=== PATIENT | male | born 1995 | race Caucasian/White ===

== ENCOUNTER 2018-02-10 20:25 | Emergency (ER) | payer OTHER, SELFPAY ==
[2018-02-10 20:28] VITALS: BP 174/99; PULSE 97; RESP 20; TEMP 36.6; O2SAT 100; BMI 29.0
[2018-02-10 21:54] LABS: Add Manual Diff / Slide Review NO; Basophils Percent Auto 0.4 % (0-2); Eosinophils Percent Auto 1.6 % (2-4); Hematocrit 45.5 % (41-53); Hemoglobin 15.5 g/dL (13.5-17.5); Lymphocytes Percent Auto 14.9 % (25-40); Mean Corpuscular HGB Conc 34.1 % (30-36); Mean Corpuscular Hemoglobin 27.9 PG (26-34); Mean Corpuscular Volume 81.8 fL (80-100); Monocytes Percent Auto 7.2 % (3-14); Neutrophils Absolute Auto 8300 /uL (3000-5900); Neutrophils Percent Auto 75.9 % (50-75); Platelet Count 368 X10^3/uL (150-400); Red Blood Cell Count 5.56 X10^6/uL (4.5-5.9); Red Cell Distribution Width 15.2 % (11.6-14.8)
[2018-02-10 22:01] LABS: Alanine Aminotransferase 43 IU/L (21-72); Albumin 4.8 g/dL (3.5-5.0); Albumin Globulin Ratio 1.2 (1.0-2.8); Alkaline Phosphatase 83 U/L (38-126); Aspartate Aminotransferase 34 IU/L (17-59); BUN Creatinine Ratio 16.7 (6-22); Bilirubin Total 0.5 mg/dL (0.2-1.3); Blood Urea Nitrogen 15 mg/dL (9-20); Calcium 10.1 mg/dL (8.4-10.2); Carbon Dioxide 31 mmol/L (22-32); Chloride 101 mmol/L (98-107); Creatine Kinase 117 U/L (55-170); Estimated Glomerular Filt Rate > 60.0 mL/min (>60); Globulin 3.9 g/dL (1.7-4.1); Glucose 110 mg/dL (70-100); HEMOLYSIS < 15 (0-50); Lipase 57 U/L (23-300); Potassium 4.5 mmol/L (3.4-5.1); Sodium 144 mmol/L (137-145); Total Protein 8.7 g/dL (6.3-8.2)
[2018-02-10 22:12] LABS: Troponin I < 0.012 ng/mL (0.01-0.034)
[2018-02-10 22:16] LABS: CKMB % Relative Index 0.4 % (1.5-5.0); Creatine Kinase MB 0.42 ng/mL (<2.37)
[2018-02-10 22:33] VITALS: BP 140/87; PULSE 88; RESP 18; O2SAT 99
[2018-02-11 00:28] VITALS: BP 148/90; PULSE 67; RESP 19; O2SAT 100
--- NOTE | 2018-02-11 00:40 | ED.CHESTPAIN ---
HPI - Chest Pain General Chief Complaint: Chest Pain Stated Complaint: CHEST PAIN Time Seen by Provider: 02/10/18 23:21 Source: patient Mode of arrival: ambulatory Limitations: no limitations History of Present Illness HPI narrative: 22-year-old otherwise healthy nonsmoking male presents with a chief complaint of epigastric pain off and on for past few weeks. He states it is worse when he eats and improves with rest. There is occasionally some radiation to his back. When his pain became intense tonight he felt dizzy and lightheaded but then improved after short amount time he denies any recent travel. He has no fever or chills. He denies any shortness of breath complaint: chest pain Onset (ago): week(s) Duration: improved Onset: during rest Pain location: epigastric Severity: moderate Quality: aching Pain radiation: none Relieving factors: nothing Exacerbating factors: eating Associated symptoms: nausea Treatments prior to arrival chest pain: none Related Data Previous Rx's Medication Instructions Recorded naproxen [Naprosyn] 500 mg PO BIDCC #30 tab 06/30/17 pantoprazole [Protonix] 40 mg PO DAILY #20 tab 02/11/18 Allergies Allergy/AdvReac Type Severity Reaction Status Date / Time No Known Allergies Allergy Uncoded 08/05/17 12:43 Review of Systems Review of Systems All systems reviewed & are unremarkable except as noted in HPI and below Constitutional Denies chills, Denies fever(s), Denies lethargy and Denies weakness Eyes Denies change in vision, Denies eye discharge, Denies irritation and Denies loss of vision ENT Ears, Nose, Mouth, and Throat: Denies change in voice, Denies neck pain and Denies sore throat Cardiovascular Denies chest pain, Denies irregular heart rhythm, Denies lightheadedness, Denies palpitations, Denies dyspnea, Denies dyspnea on exertion and Denies orthopnea Respiratory Denies cough, Denies dyspnea, Denies dyspnea on exertion and Denies wheezing Gastrointestinal Gastrointestinal: Reports abdominal pain, Denies change in bowel habits, Denies diarrhea, Denies nausea and Denies vomiting Genitourinary Denies hematuria, Denies flank pain, Denies urinary incontinence and Denies urinary urgency Musculoskeletal Denies neck pain Integumentary/Breasts Denies pruritus, Denies erythema, Denies rash and Denies wounds Neurologic Denies confusion, Denies loss of vision and Denies weakness Psychiatric Denies anxiety, Denies confusion, Denies depression, Denies homicidal ideation and Denies suicidal ideation Endocrine Denies palpitations Hematologic/Lymphatic Denies easy bruising Allergic/Immunologic Denies wheezing [facility] Social History Smoking Status: Never smoker Exam Narrative Exam Narrative: GEN: AOx3 and in mild distress EYES: Pupils are equal, round, and reactive to light and accommodation. Extraoccular muscles are intact bilaterally. There is no subconjunctival hemorrhage or exudate. CHEST: Lungs are clear to auscultation bilaterally and free of wheezes, rales, or rhonchi. Heart rate is regular rhythm, there are no murmurs, clicks, rubs, or gallops. There is no chest wall tenderness. ABD: Abdomen is soft and mildly tender in the epigastrium. There is no guarding or rebound. Bowel sounds are normal in all 4 quadrants. There is no mass or organomegaly. EXT: Full painless ROM of all extremities with no loss of sensation or strength. SKIN: Warm, pink, and dry. No erythema or rash Initial Vital Signs Initial Vital Signs: Vital Signs Temperature 97.9 F 02/10/18 20:28 Pulse Rate 97 H 02/10/18 20:28 Respiratory Rate 20 02/10/18 20:28 Blood Pressure 174/99 H 02/10/18 20:28 Pulse Oximetry 100 02/10/18 20:28 Course Orders Ordered: ED Orders 02/10/18 21:20 Complete Blood Count AUTO DIFF Stat Comprehensive Metabolic Panel Stat Lipase Stat Troponin & CK Cardiac Panel Stat Discontinued Medications Al Hydrox/Mg Hydrox/Simethicone 20 ml/ Lidocaine HCl 15 ml 0 ml PO NOW ONE Stop: 02/11/18 00:58 Last Admin: 02/11/18 01:05 Dose: 35 ml Vital Signs - 8 hr 02/10/18 22:33 02/11/18 00:28 Pulse Rate 88 67 Respiratory Rate 18 19 Blood Pressure [Left Arm] 140/87 148/90 H Pulse Oximetry 99 100 MDM - Chest Pain Medical Records Data Attestation: I reviewed the patient's medical records. Lab Data Attestation: I reviewed the patient's lab results. Result diagrams: 02/10/18 21:20 02/10/18 21:20 Lab Results 02/10/18 02/10/18 Range/Units 21:20 21:20 WBC 11.0 (4.5-11.0) X10^3/uL RBC 5.56 (4.5-5.9) X10^6/uL Hgb 15.5 (13.5-17.5) g/dL Hct 45.5 (41-53) % MCV 81.8 (80-100) fL MCH 27.9 (26-34) PG MCHC 34.1 (30-36) % RDW 15.2 H (11.6-14.8) % Plt Count 368 (150-400) X10^3/uL Neut % (Auto) 75.9 H (50-75) % Lymph % (Auto) 14.9 L (25-40) % [place] % (Auto) 7.2 (3-14) % Eos % (Auto) 1.6 L (2-4) % Baso % (Auto) 0.4 (0-2) % Neut # (Auto) 8300 H (0286-8120) /uL Sodium 144 (137-145) mmol/L Potassium 4.5 (3.4-5.1) mmol/L Chloride 101 (98-107) mmol/L Carbon Dioxide 31 (22-32) mmol/L BUN 15 (9-20) mg/dL Creatinine 0.90 (0.66-1.25) mg/dL Estimated GFR > 60.0 (>60) mL/min BUN/Creatinine Ratio 16.7 (6-22) Glucose 110 H (70-100) mg/dL Calcium 10.1 (8.4-10.2) mg/dL Total Bilirubin 0.5 (0.2-1.3) mg/dL AST 34 (17-59) IU/L ALT 43 (21-72) IU/L Alkaline Phosphatase 83 (38-126) U/L Total Creatine Kinase 117 (55-170) U/L CK-MB (CK-2) 0.42 (<2.37) ng/mL CK-MB (CK-2) Rel Index 0.4 L (1.5-5.0) % Troponin I < 0.012 (0.01-0.034) ng/mL Total Protein 8.7 H (6.3-8.2) g/dL Albumin 4.8 (3.5-5.0) g/dL Globulin 3.9 (1.7-4.1) g/dL Albumin/Globulin Ratio 1.2 (1.0-2.8) Lipase 57 (23-300) U/L ECG Data Attestation: I personally reviewed and interpreted this ECG as follows: Prior ECG tracings: not available for review Interpretation: EKG is normal sinus rhythm and free of any signs of ischemia or ectopy. Discharge Plan Departure Patient Disposition: Home Clinical Impression: Abdominal pain, acute, epigastric Discharge Date/Time: 02/11/18 01:07 Interventions: ED Discharge Assessment Last Done: 02/11/18 01:13 Instructions: DI for Epigastric Pain Activity Restrictions/Additional Instructions: *You have been diagnosed with [ acute epigastric pain ] *What to do: *Take medications as directed *Follow up with your primary care provider in 2-3 days, call for an appointment. Let them know you were seen in the Emergency Department and that we ask that you be seen in follow up *Return to ER if you should have any new, worsening or concerning symptoms Prescriptions: New pantoprazole [Protonix] 40 mg tablet,delayed release (DR/EC) 40 mg PO DAILY Qty: 20 RF: 0 No Action naproxen [Naprosyn] 500 MG tablet 500 mg PO BIDCC Qty: 30 RF: 0
[2018-02-11] MEDS: MAG HYDROX/ALUMINUM/SIMETH SUS 20 ML, LIDOCAINE VISCOUS 2% 15 ML PO (01:05)
== END 2018-02-11 01:07 | disposition home or self-care (01) ==
PROVIDERS: Emergency Provider Emergency Medicine
DX: R10.9 Unspecified abdominal pain (principal); R07.89 Other chest pain
CPT/HCPCS: 36591; 80053; 82550; 82553; 83690; 84484; 85025; 93005; 93010; 99282; 99284

== ENCOUNTER 2018-05-13 19:50 | Emergency (ER) | payer OTHER, SELFPAY ==
[2018-05-13 19:59] VITALS: BP 147/89; PULSE 84; RESP 14; TEMP 37; O2SAT 98; BMI 29.0
[2018-05-13 21:23] VITALS: BP 134/94; PULSE 87; RESP 18; O2SAT 95
--- NOTE | 2018-05-13 21:49 | DI.RAD.S_ITS ---
PROCEDURE: XR CHEST 2V INDICATIONS: chest pain TECHNIQUE: 2 views of the chest were acquired. COMPARISON: None. FINDINGS: Surgical changes and devices: None. Lungs and pleura: No pleural effusions or pneumothorax. Lungs are clear. Mediastinum: Mediastinal contours are normal. Heart size is normal. Bones and chest wall: No suspicious bony abnormalities. Soft tissues appear unremarkable. IMPRESSION: No acute disease. Dictated by: Lai Machado M.D. on 05/13/2018 at 22:07 Approved by: Lai Machado M.D. on 05/13/2018 at 22:08
[2018-05-13 22:26] VITALS: PULSE 93; O2SAT 100
[2018-05-13 22:38] LABS: Add Manual Diff / Slide Review NO; Basophils Absolute Auto 100 /uL (0-100); Basophils Percent Auto 0.7 % (0-2); Eosinophils Absolute Auto 100 /uL (0-450); Eosinophils Percent Auto 1.2 % (2-4); Hematocrit 47.7 % (41-53); Hemoglobin 16.6 g/dL (13.5-17.5); Lymphocytes Absolute Auto 2600 /uL (1100-4500); Lymphocytes Percent Auto 25.3 % (25-40); Mean Corpuscular HGB Conc 34.8 % (30-36); Mean Corpuscular Hemoglobin 29.3 PG (26-34); Mean Corpuscular Volume 84.1 fL (80-100); Monocytes Absolute Auto 700 /uL (0-900); Monocytes Percent Auto 6.4 % (3-14); Neutrophils Absolute Auto 6700 /uL (1500-7000); Neutrophils Percent Auto 66.4 % (50-75); Platelet Count 309 X10^3/uL (150-400); Red Blood Cell Count 5.67 X10^6/uL (4.5-5.9); Red Cell Distribution Width 14.3 % (11.6-14.8); White Blood Cell Count 10.2 X10^3/uL (4.5-11.0)
[2018-05-13 22:45] LABS: Alanine Aminotransferase 30 IU/L (21-72); Albumin 4.8 g/dL (3.5-5.0); Albumin Globulin Ratio 1.3 (1.0-2.8); Alkaline Phosphatase 78 U/L (38-126); Aspartate Aminotransferase 26 IU/L (17-59); Bilirubin Total 0.6 mg/dL (0.2-1.3); Blood Urea Nitrogen 9 mg/dL (9-20); Calcium 9.6 mg/dL (8.4-10.2); Carbon Dioxide 27 mmol/L (22-32); Chloride 104 mmol/L (98-107); Creatine Kinase 95 U/L (55-170); Estimated Glomerular Filt Rate > 60.0 mL/min (>60); Globulin 3.6 g/dL (1.7-4.1); Glucose 96 mg/dL (70-100); HEMOLYSIS 34 (0-50); Potassium 4.3 mmol/L (3.4-5.1); Sodium 143 mmol/L (137-145); Total Protein 8.4 g/dL (6.3-8.2)
[2018-05-13 23:07] LABS: Troponin I < 0.012 ng/mL (0.01-0.034)
[2018-05-14 00:03] VITALS: BP 131/70; PULSE 78; RESP 16; O2SAT 95
--- NOTE | 2018-05-17 19:53 | ED_ITS ---
HPI - Chest Pain General Chief Complaint: Chest Pain Stated Complaint: CHEST PAIN TOWRDS LEFT ARM Time Seen by Provider: 05/13/18 20:53 Source: patient Mode of arrival: ambulatory Limitations: no limitations History of Present Illness HPI narrative: Patient complains of pain in his left chest and shoulder. He denies any shortness of breath. Symptoms have been going on for a couple of weeks now. Patient states that he does use his left arm a lot of his job, and is not sure if this is the cause of the pain or not. However, patient does also note that his father had an NC at 20. patient denies any nausea or vomiting. He is not a smoker or diabetic. No hypertension. No known cardiac issues. Pain when he gets it is 4/10. It is currently 2/10. Related Data Previous Rx's Medication Instructions Recorded naproxen [Naprosyn] 500 mg PO BIDCC #30 tab 06/30/17 pantoprazole [Protonix] 40 mg PO DAILY #20 tab 02/11/18 ondansetron 4 mg disintegrating 4 mg PO Q6-8H PRN #30 tab 02/17/18 tablet Allergies Allergy/AdvReac Type Severity Reaction Status Date / Time No Known Drug Allergies Allergy Verified 05/13/18 19:59 Review of Systems Constitutional Denies chills, Denies fever(s), Denies lethargy and Denies weakness Eyes Denies change in vision, Denies eye discharge, Denies irritation and Denies loss of vision ENT Ears, Nose, Mouth, and Throat: Denies change in voice, Denies neck pain and Denies sore throat Cardiovascular Reports chest pain, Denies irregular heart rhythm, Denies lightheadedness, Denies palpitations, Denies dyspnea, Denies dyspnea on exertion and Denies orthopnea Respiratory Denies cough, Denies dyspnea, Denies dyspnea on exertion and Denies wheezing Gastrointestinal Gastrointestinal: Denies abdominal pain, Denies change in bowel habits, Denies diarrhea, Denies nausea and Denies vomiting Genitourinary Denies hematuria, Denies flank pain, Denies urinary incontinence and Denies urinary urgency Musculoskeletal Denies neck pain Integumentary/Breasts Denies pruritus, Denies erythema, Denies rash and Denies wounds Neurologic Denies confusion, Denies loss of vision and Denies weakness Psychiatric Denies anxiety, Denies confusion, Denies depression, Denies homicidal ideation and Denies suicidal ideation Endocrine Denies palpitations Hematologic/Lymphatic Denies easy bruising Allergic/Immunologic Denies wheezing [facility] Medical History Healthy adult (Acute) Surgical History No pertinent past surgical history (Acute) Social History Smoking Status: Never smoker Exam Initial Vital Signs Initial Vital Signs: Vital Signs Temperature 98.6 F 05/13/18 19:59 Pulse Rate 84 05/13/18 19:59 Respiratory Rate 14 05/13/18 19:59 Blood Pressure 147/89 H 05/13/18 19:59 Pulse Oximetry 98 05/13/18 19:59 Const General: cooperative and well developed Nutritional Appearance: well nourished Orientation: alert, awake, oriented x3 and not confused HENMT Head: normocephalic and atraumatic Ears: external ears normal Nose: external nose normal and No nasal discharge Face and sinus: face symmetric and No dry mucous membranes Mouth: oral mucosae normal and moist mucous membranes Teeth and gingiva: dentition normal Eyes General: appearance normal, both eyes and all related structures Eyelids: eyelids normal Conjunctivae: conjunctivae normal Sclera: sclerae normal Pupils: PERRL EOM: EOM intact bilaterally Neck Neck: normal visual inspection, trachea midline, No lymphadenopathy, No midline deformity and No JVD Lymphatic: No lymphedema Chest Chest: normal inspection of the chest Resp Effort & Inspection: normal respiratory effort, able to speak in complete sentences, no respiratory distress and no use of accessory muscles Auscultation: clear to auscultation bilaterally, no rales, no rhonchi and no wheezes Cardio Rate: regular rate Rhythm: regular rhythm Heart Sounds: no click, no gallops, no murmurs and no rubs Pulses: normal peripheral pulses GI Inspection: non-distended Palpation: soft, no hepatosplenomegaly, No guarding, No pulsatile mass and No tender Auscultation: normal bowel sounds Back/Spine/Pelvis Back: No CVA tenderness Cervical Spine: cervical ROM normal and No pain with cervical ROM Thoracic/Lumbar Spine: thoracic and lumbar spine normal to inspection Skin General: no rashes or lesions noted, No jaundice and No petechiae Neuro General: alert, oriented x3, gait normal and no focal motor deficits Speech: speech normal Extrem General: full ROM, no clubbing, cyanosis or edema, no pedal edema and no calf tenderness Psych Appearance: well kempt Mental Status: mental status grossly normal Attitude: cooperative Thought Content: normal and suicidality Judgment: judgment good Course Course Narrative: patient was very low risk for NC, and was not entirely clear whether the patient's father had actually had an NC at 20 or another Combivent. Nonetheless, the patient was worked up and workup was found to be unremarkable. He did note that his pain was worse with movement and he does do repetitive movements of his shoulder as part of his work, and I felt that most likely, the shoulder pain at least was more mechanical in nature. We have discussed home management symptoms, as well as the usual indications for return. MDM - Chest Pain Medical Records Data Attestation: I reviewed the patient's medical records. Lab Data Attestation: I reviewed the patient's lab results. Result diagrams: 05/13/18 22:30 05/13/18 22:30 Lab Results 05/13/18 05/13/18 Range/Units 22:30 22:30 WBC 10.2 (4.5-11.0) X10^3/uL RBC 5.67 (4.5-5.9) X10^6/uL Hgb 16.6 (13.5-17.5) g/dL Hct 47.7 (41-53) % MCV 84.1 (80-100) fL MCH 29.3 (26-34) PG MCHC 34.8 (30-36) % RDW 14.3 (11.6-14.8) % Plt Count 309 (150-400) X10^3/uL Neut % (Auto) 66.4 (50-75) % Lymph % (Auto) 25.3 (25-40) % [place] % (Auto) 6.4 (3-14) % Eos % (Auto) 1.2 L (2-4) % Baso % (Auto) 0.7 (0-2) % Neut # (Auto) 6700 (4792-7070) /uL Lymph # (Auto) 2600 (9385-7822) /uL [place] # (Auto) 700 (0-900) /uL Eos # (Auto) 100 (0-450) /uL Baso # (Auto) 100 (0-100) /uL Sodium 143 (137-145) mmol/L Potassium 4.3 (3.4-5.1) mmol/L Chloride 104 (98-107) mmol/L Carbon Dioxide 27 (22-32) mmol/L BUN 9 (9-20) mg/dL Creatinine 0.90 (0.66-1.25) mg/dL Estimated GFR > 60.0 (>60) mL/min BUN/Creatinine Ratio 10.0 (6-22) Glucose 96 (70-100) mg/dL Calcium 9.6 (8.4-10.2) mg/dL Total Bilirubin 0.6 (0.2-1.3) mg/dL AST 26 (17-59) IU/L ALT 30 (21-72) IU/L Alkaline Phosphatase 78 (38-126) U/L Total Creatine Kinase 95 (55-170) U/L CK-MB (CK-2) TNP CK-MB (CK-2) Rel Index TNP Troponin I < 0.012 (0.01-0.034) ng/mL Total Protein 8.4 H (6.3-8.2) g/dL Albumin 4.8 (3.5-5.0) g/dL Globulin 3.6 (1.7-4.1) g/dL Albumin/Globulin Ratio 1.3 (1.0-2.8) ECG Data Attestation: I personally reviewed and interpreted this ECG as follows: Prior ECG tracings: not available for review Interpretation: Twelve lead EKG was performed, and showed the patient to be in a normal sinus rhythm with a normal rate and axis. Pure intervals were normal. No significant ST or T-wave changes. Summary: Normal EKG as interpreted by ED MD. Discharge Plan Departure Patient Disposition: Home Clinical Impression: Chest pain Discharge Date/Time: 05/14/18 00:05 Interventions: ED Discharge Assessment Last Done: 05/14/18 00:03 Instructions: DI for Chest Pain Activity Restrictions/Additional Instructions: Your labs look good, as do your EKG and chest x-ray. Prescriptions: No Action ondansetron 4 mg tablet,disintegrating 4 mg PO Q6-8H PRN (Reason: nausea and vomiting) Qty: 30 RF: 0 naproxen [Naprosyn] 500 MG tablet 500 mg PO BIDCC Qty: 30 RF: 0 pantoprazole [Protonix] 40 mg tablet,delayed release (DR/EC) 40 mg PO DAILY Qty: 20 RF: 0
== END 2018-05-14 00:05 | disposition home or self-care (01) ==
PROVIDERS: Emergency Provider Emergency Medicine
DX: R07.89 Other chest pain (principal)
CPT/HCPCS: 36591; 71046; 80053; 82550; 84484; 85025; 93005; 93010; 99282; 99285

== ENCOUNTER 2018-06-26 02:28 | Emergency (ER) | payer OTHER, SELFPAY ==
[2018-06-26 02:37] VITALS: BP 141/111; PULSE 104; RESP 18; TEMP 36.9; O2SAT 100; BMI 29.0
[2018-06-26 02:45] VITALS: BP 141/111; PULSE 104; RESP 18; TEMP 36.9; O2SAT 100; BMI 29.0
[2018-06-26 02:46] LABS: Add Manual Diff / Slide Review NO; Basophils Absolute Auto 100 /uL (0-100); Basophils Percent Auto 0.6 % (0-2); Eosinophils Absolute Auto 200 /uL (0-450); Eosinophils Percent Auto 1.7 % (2-4); Hematocrit 47.8 % (41-53); Hemoglobin 16.4 g/dL (13.5-17.5); Lymphocytes Absolute Auto 4200 /uL (1100-4500); Mean Corpuscular HGB Conc 34.2 % (30-36); Mean Corpuscular Hemoglobin 29.1 PG (26-34); Mean Corpuscular Volume 85.2 fL (80-100); Monocytes Absolute Auto 900 /uL (0-900); Monocytes Percent Auto 6.6 % (3-14); Neutrophils Absolute Auto 8500 /uL (1500-7000); Neutrophils Percent Auto 61.1 % (50-75); Platelet Count 395 X10^3/uL (150-400); Red Blood Cell Count 5.62 X10^6/uL (4.5-5.9); Red Cell Distribution Width 13.9 % (11.6-14.8); White Blood Cell Count 13.9 X10^3/uL (4.5-11.0)
[2018-06-26 02:55] LABS: BUN Creatinine Ratio 21.3 (6-22); Blood Urea Nitrogen 17 mg/dL (9-20); Calcium 9.6 mg/dL (8.4-10.2); Carbon Dioxide 24 mmol/L (22-32); Chloride 99 mmol/L (98-107); Estimated Glomerular Filt Rate > 60.0 mL/min (>60); Glucose 109 mg/dL (70-100); HEMOLYSIS 17 (0-50); Potassium 3.6 mmol/L (3.4-5.1); Sodium 140 mmol/L (137-145)
--- NOTE | 2018-06-26 02:56 | ED.HA ---
HPI - Headache General Chief Complaint: Headache Stated Complaint: L sided facial and arm numbness Time Seen by Provider: 06/26/18 02:32 Source: patient Mode of arrival: EMS Limitations: no limitations History of Present Illness HPI Narrative: Patient is otherwise healthy 22-year-old male brought in by EMS after he was at work at the local [employer] and started noticing that the left side of his face was numb. He also noticed that his left hand was numb. He states that he started to get very worried about the symptoms. He states that his grand father had of a stroke. He also states that his father had heart issues. EMS reports that prior to arrival his blood sugar was in the 50s. They did not provide any glucose prior to arrival. Related Data Previous Rx's Medication Instructions Recorded naproxen [Naprosyn] 500 mg PO BIDCC #30 tab 06/30/17 pantoprazole [Protonix] 40 mg PO DAILY #20 tab 02/11/18 ondansetron 4 mg disintegrating 4 mg PO Q6-8H PRN #30 tab 02/17/18 tablet Allergies Allergy/AdvReac Type Severity Reaction Status Date / Time No Known Drug Allergies Allergy Verified 05/13/18 19:59 Review of Systems Constitutional Denies fever(s), Denies frequent falls and Denies weakness ENT Ears, Nose, Mouth, and Throat: Denies disequilibrium Cardiovascular Denies chest pain Gastrointestinal Gastrointestinal: Denies abdominal pain Musculoskeletal Denies myalgias, Denies arthralgias, Reports numbness and Reports tingling Integumentary/Breasts Denies rash Neurologic Denies confusion, Denies frequent falls, Reports numbness, Reports tingling, Denies disequilibrium and Denies weakness Psychiatric Denies confusion Hematologic/Lymphatic Denies easy bleeding and Denies easy bruising [facility] Medical History Healthy adult (Acute) Social History Smoking Status: Never smoker Exam Initial Vital Signs Initial Vital Signs: Vital Signs Temperature 98.5 F 06/26/18 02:37 Pulse Rate 104 H 06/26/18 02:37 Respiratory Rate 18 06/26/18 02:37 Blood Pressure 141/111 H 06/26/18 02:37 Pulse Oximetry 100 06/26/18 02:37 Const General: cooperative, healthy appearing, comfortable, well developed, well groomed and No acute distress Orientation: alert, awake and oriented x3 HENMT Head: normal to inspection and normocephalic Nose: external nose normal Face and sinus: normal facial exam Mouth: oral mucosae normal Eyes Pupils: PERRL EOM: EOM intact bilaterally Resp Effort & Inspection: normal respiratory effort Auscultation: clear to auscultation bilaterally Cardio Rate: regular rate Rhythm: regular rhythm GI Inspection: non-distended Palpation: soft Skin Lesions: no lesions Rashes: no rashes Neuro General: alert, awake and oriented x3 Cranial Nerves: CN's II-XI intact bilaterally Cognition: normal cognition Speech: speech normal Gait: normal gait Motor: muscle tone normal throughout Sensory Exam: other (Patient did report a decreased sensation to the left side of the face) Extrem General: normal to inspection and capillary refill normal Psych Appearance: grossly normal and well kempt Mood: anxious mood Attitude: cooperative Course Orders Ordered: ED Orders 06/26/18 02:30 Basic Metabolic Panel Stat Complete Blood Count AUTO DIFF Stat 06/26/18 02:33 EKG-12 Lead Stat Vital Signs - 8 hr 06/26/18 02:37 06/26/18 02:45 06/26/18 03:30 Temperature 98.5 F 98.5 F Pulse Rate 104 H 104 H 81 Respiratory Rate 18 18 78 H Blood Pressure 141/111 H 141/111 H Blood Pressure [Left Arm] 139/69 Pulse Oximetry 100 100 99 MDM - Headache Lab Data Attestation: I reviewed the patient's lab results. Result diagrams: 06/26/18 02:30 06/26/18 02:30 Lab Results 06/26/18 06/26/18 Range/Units 02:30 02:30 WBC 13.9 H (4.5-11.0) X10^3/uL RBC 5.62 (4.5-5.9) X10^6/uL Hgb 16.4 (13.5-17.5) g/dL Hct 47.8 (41-53) % MCV 85.2 (80-100) fL MCH 29.1 (26-34) PG MCHC 34.2 (30-36) % RDW 13.9 (11.6-14.8) % Plt Count 395 (150-400) X10^3/uL Neut % (Auto) 61.1 (50-75) % Lymph % (Auto) 30.0 (25-40) % [place] % (Auto) 6.6 (3-14) % Eos % (Auto) 1.7 L (2-4) % Baso % (Auto) 0.6 (0-2) % Neut # (Auto) 8500 H (6377-8077) /uL Lymph # (Auto) 4200 (3585-8392) /uL [place] # (Auto) 900 (0-900) /uL Eos # (Auto) 200 (0-450) /uL Baso # (Auto) 100 (0-100) /uL Sodium 140 (137-145) mmol/L Potassium 3.6 (3.4-5.1) mmol/L Chloride 99 (98-107) mmol/L Carbon Dioxide 24 (22-32) mmol/L BUN 17 (9-20) mg/dL Creatinine 0.80 (0.66-1.25) mg/dL Estimated GFR > 60.0 (>60) mL/min BUN/Creatinine Ratio 21.3 (6-22) Glucose 109 H (70-100) mg/dL Calcium 9.6 (8.4-10.2) mg/dL Point of Care Testing Glucose POC 107 ECG Data Attestation: I personally reviewed and interpreted this ECG as follows: Prior ECG tracings: not available for review Interpretation: Sinus rhythm Ventricular rate of 90 Normal axis Normal intervals Normal QRS No ST T wave changes MDM Narrative Medical decision making narrative: Patient is low risk for CVA. Low risk for ACS. EKG is unremarkable. Patient reports decreased sensation to the left side of his face to light touch however this is purely subjective. The rest of his cranial nerves were unremarkable. Patient was reporting decreased sensation to his left upper extremity however with testing of this he reported no change compared to his right. He did have an elevated white blood cell count however did not have a left shift. No signs of an infection. His blood sugar did improve after drinking orange juice here in the emergency department. Patient is fairly anxious. I do suspect that this could be the cause of a lot of his symptoms. Will hold on further workup for now. Patient was given return precautions. He expressed understanding and agreement with plan. Discharge Plan Departure Patient Disposition: Home Clinical Impression: Facial paresthesia, Arm paresthesia, left, Hypoglycemia Instructions: DI for Numbness/tingling Activity Restrictions/Additional Instructions: Recommend that you call the number on the card that you were given to establish care with a primary care doctor. Continue all of your medications as directed. Return to the emergency department for any new or worsening symptoms Prescriptions: No Action ondansetron 4 mg tablet,disintegrating 4 mg PO Q6-8H PRN (Reason: nausea and vomiting) Qty: 30 RF: 0 naproxen [Naprosyn] 500 MG tablet 500 mg PO BIDCC Qty: 30 RF: 0 pantoprazole [Protonix] 40 mg tablet,delayed release (DR/EC) 40 mg PO DAILY Qty: 20 RF: 0
[2018-06-26 03:30] VITALS: BP 139/69; PULSE 81; RESP 78; O2SAT 99
== END 2018-06-26 03:43 | disposition home or self-care (01) ==
PROVIDERS: Emergency Provider Emergency Medicine
DX: R20.2 Paresthesia of skin (principal); E16.2 Hypoglycemia, unspecified
CPT/HCPCS: 80048; 82962; 85025; 93005; 93010; 99282; 99284

== ENCOUNTER → 2018-07-14 15:58 | Outpatient (CLI) | payer OTHER, SELFPAY ==
[2018-07-14 16:43] LABS: BUN Creatinine Ratio 12.5 (6-22); Blood Urea Nitrogen 10 mg/dL (9-20); Calcium 10.2 mg/dL (8.4-10.2); Carbon Dioxide 28 mmol/L (22-32); Chloride 102 mmol/L (98-107); Cholesterol 119 mg/dL (140-199); Estimated Glomerular Filt Rate > 60.0 mL/min (>60); Glucose 93 mg/dL (70-100); HDL Cholesterol 31 mg/dL (40-60); HEMOLYSIS < 15 (0-50); LDL Cholesterol Calculated 41 mg/dL (<100); Potassium 4.2 mmol/L (3.4-5.1); Sodium 144 mmol/L (137-145); Triglycerides 235 mg/dL (35-150)
== END ==
PROVIDERS: PCP Internal Medicine; Visit Provider Internal Medicine
DX: Z82.49 Family history of ischemic heart disease and other diseases of the circulatory system (principal); R51 Headache; K21.9 Gastro-esophageal reflux disease without esophagitis
CPT/HCPCS: 36415; 80048; 80061

== ENCOUNTER → 2018-08-03 10:19 | Outpatient (CLI) | payer OTHER, SELFPAY ==
--- NOTE | 2018-08-03 | DI.RAD.S_ITS ---
PROCEDURE: XR CHEST 2V INDICATIONS: CHEST PAIN TECHNIQUE: 2 views of the chest were acquired. COMPARISON: [facility], CR, XR CHEST 2V, 05/13/2018, 21:52. FINDINGS: Surgical changes and devices: None. Lungs and pleura: Lungs are clear. No pleural effusions or pneumothorax. Mediastinum: Mediastinal contours are normal. Heart size is normal. Bones and chest wall: No suspicious bony abnormalities. Soft tissues appear unremarkable. IMPRESSION: Normal for age, source of current chest pain symptoms is not seen. Dictated by: Pollo Escalera M.D. on 08/03/2018 at 11:04 Approved by: Pollo Escalera M.D. on 08/03/2018 at 11:04
== END ==
PROVIDERS: PCP Internal Medicine; Visit Provider Internal Medicine
DX: R07.9 Chest pain, unspecified (principal); R22.9 Localized swelling, mass and lump, unspecified
CPT/HCPCS: 71046